=== PATIENT | male | born 1965 | race Caucasian/White ===

== ENCOUNTER 2017-12-24 08:49 | Emergency (ER) | payer OTHER ==
[~2017-12-24] VITALS: Ht 180.3 cm; Wt 88.0 kg
[2017-12-24 09:01] VITALS: BP 170/116
[2017-12-24] MEDS ORDERED: SODIUM CHLORIDE FLUSH 10ML SYR IVF ONE (09:30)
[2017-12-24 10:04] LABS: ALANINE AMINOTRANSFERASE 68 U/L (12-78); ALBUMIN 3.4 g/dL (3.4-5.0); ANION GAP 14 mmol/L (5-15); CALCIUM 8.4 mg/dL (8.5-10.1); CHLORIDE 104 mmol/L (98-107); CREATININE 0.73 mg/dL (0.7-1.3)
[2017-12-24 10:08] LABS: ALKALINE PHOSPHATASE 43 U/L (45-117); BILIRUBIN,TOTAL 0.8 mg/dL (0.2-1.0); TOTAL PROTEIN 7.6 g/dL (6.4-8.2); TROPONIN I < 0.015 ng/mL (0.000-0.045)
[2017-12-24 10:10] LABS: SALICYLATE LEVEL < 1.7 mg/dL (2.8-20.0)
[2017-12-24 10:37] LABS: BASOPHILS # (AUTO) 0.02 x10^3/uL (0-0.1); BASOPHILS % (AUTO) 0 % (0-1); EOSINOPHILS # (AUTO) 0.08 x10^3/uL (0-0.4); EOSINOPHILS % (AUTO) 2 % (1-7); LYMPHOCYTES # (AUTO) 0.97 x10^3/uL (1-3.4); LYMPHOCYTES % (AUTO) 20 % (22-44); MD SCAN; MEAN CORPUSCULAR HEMOGLOBIN 33.8 pg (27.5-34.5); MEAN CORPUSCULAR HGB CONC 34.9 g/dL (33.2-36.2); MEAN CORPUSCULAR VOLUME 96.9 fL (81-97); MEAN PLATELET VOLUME 7.9 fL (7.4-10.4); MONOCYTES # (AUTO) 0.49 x10^3/uL (0.2-0.8); MONOCYTES % (AUTO) 10 % (2-9); NEUTROPHILS # (AUTO) 3.39 x10^3/uL (1.8-6.8); NEUTROPHILS % (AUTO) 69 % (42-75); PLATELET COUNT 55 x10^3/uL (130-400); RED BLOOD COUNT 4.76 x10^6/uL (4.38-5.82)
== END 2017-12-24 12:05 | disposition home or self-care (01) ==
LOC: ED 11:45
DX: R11.10 Vomiting, unspecified (principal); R20.2 Paresthesia of skin; I10 Essential (primary) hypertension
CPT/HCPCS: 36415; 70450; 71045; 80053; 80329; 84484; 85025; 93005; 99285; G0480

== ENCOUNTER 2019-08-19 09:41 | Emergency (ER) | payer MEDICAID ==
[~2019-08-19] VITALS: Ht 180.3 cm; Wt 87.0 kg
--- NOTE | 2019-08-19 09:50 | NUR ---
pt ambulated to the room with a steady gait. Changed into hospital gown and connected to monitors.
--- NOTE | 2019-08-19 09:53 | NUR ---
Provider at bedside. pt in with C/O of shortness of breath for "months". pt also states that he had a CXR and blood work completed yesterday was advised to go to the ED today
--- NOTE | 2019-08-19 10:01 | NUR ---
pt states that he take lisinopril, alburterol, hydrocholorzide and 2 other medications that he can not remember that names of. pt does not now the dosages of his medications.
--- NOTE | 2019-08-19 10:05 | NUR ---
CXR at bedside
[2019-08-19 10:35] LABS: BASOPHILS # (AUTO) 0.03 x10^3/uL (0-0.1); BASOPHILS % (AUTO) 1 % (0-1); EOSINOPHILS # (AUTO) 0.16 x10^3/uL (0-0.4); EOSINOPHILS % (AUTO) 4 % (1-7); LYMPHOCYTES # (AUTO) 1.22 x10^3/uL (1-3.4); LYMPHOCYTES % (AUTO) 28 % (22-44); MD NO; MEAN CORPUSCULAR HEMOGLOBIN 33.8 pg (27.5-34.5); MEAN CORPUSCULAR VOLUME 99.5 fL (81-97); MEAN PLATELET VOLUME 8.7 fL (7.4-10.4); MONOCYTES # (AUTO) 0.72 x10^3/uL (0.2-0.8); MONOCYTES % (AUTO) 16 % (2-9); NEUTROPHILS # (AUTO) 2.28 x10^3/uL (1.8-6.8); NEUTROPHILS % (AUTO) 52 % (42-75); PLATELET COUNT 125 x10^3/uL (130-400); RED BLOOD COUNT 4.49 x10^6/uL (4.38-5.82); RED CELL DISTRIBUTION WIDTH 16.6 % (9.4-14.8)
[2019-08-19 10:44] LABS: ALANINE AMINOTRANSFERASE 128 U/L (12-78); ALBUMIN 3.4 g/dL (3.4-5.0); ANION GAP 10 mmol/L (5-15); CHLORIDE 99 mmol/L (98-107); CREATININE 0.84 mg/dL (0.7-1.3)
[2019-08-19 10:48] LABS: ALKALINE PHOSPHATASE 36 U/L (45-117); BILIRUBIN,TOTAL 0.5 mg/dL (0.2-1.0); TOTAL PROTEIN 7.4 g/dL (6.4-8.2); TROPONIN I < 0.015 ng/mL (0.000-0.045)
[2019-08-19] MEDS ORDERED: POTASSIUM CHLORIDE 20 MEQ TAB.ER.PRT PO ONE (11:00)
[2019-08-19] MEDS ORDERED: POTASSIUM CHLORIDE 20 MEQ TAB.ER.PRT ONE (11:09)
[2019-08-19 11:57] VITALS: BP 138/79
== END 2019-08-19 12:04 | disposition home or self-care (01) ==
LOC: ED 10:24
DX: K85.20 Alcohol induced acute pancreatitis without necrosis or infection (principal); E87.6 Hypokalemia; R94.5 Abnormal results of liver function studies; R06.00 Dyspnea, unspecified; R05 Cough; I21.9 Acute myocardial infarction, unspecified; I10 Essential (primary) hypertension; G89.29 Other chronic pain; Z87.891 Personal history of nicotine dependence
CPT/HCPCS: 36415; 71045; 76700; 80053; 83690; 83880; 84484; 85025; 93005; 99285

== ENCOUNTER 2020-07-22 06:24 | Emergency (ER) | payer MEDICAID ==
[~2020-07-22] VITALS: Ht 180.3 cm; Wt 84.3 kg
[2020-07-22 07:16] LABS: BASOPHILS % (AUTO) 2 % (0-1); EOSINOPHILS % (AUTO) 5 % (1-7); LYMPHOCYTES % (AUTO) 29 % (22-44); MEAN CORPUSCULAR HEMOGLOBIN 33.5 pg (27.5-34.5); MEAN CORPUSCULAR HGB CONC 34.5 g/dL (33.2-36.2); MEAN PLATELET VOLUME 8.5 fL (7.4-10.4); MONOCYTES % (AUTO) 8 % (2-9); NEUTROPHILS % (AUTO) 56 % (42-75); PLATELET COUNT 172 x10^3/uL (130-400)
--- NOTE | 2020-07-22 07:23 | NUR ---
PT STATES BILAT LE SWELLING AND PAIN WITH STANDING X1 WEEK. PT PLACED ON ALL MONITORS, VSS. AWAITING LAB RESULTS. TECH AT BEDSIDE FOR EKG PER ORDERS.
[2020-07-22 07:27] LABS: ALBUMIN 2.9 g/dL (3.4-5.0); ANION GAP 9 mmol/L (5-15); CALCIUM 8.1 mg/dL (8.5-10.1); CHLORIDE 110 mmol/L (98-107); CREATININE 0.79 mg/dL (0.7-1.3)
[2020-07-22] MEDS ORDERED: POTASSIUM CHLORIDE 20 MEQ PACKET PO STA (07:52)
--- NOTE | 2020-07-22 08:05 | NUR ---
PT RESTING IN BED, NO DISTRESS. AWAITING U/S RESULTS. PT REMAINS ON MONITOR. CONT TO MONITOR.
--- NOTE | 2020-07-22 08:40 | NUR ---
PT D/C'D PER ORDERS. PT HAS ALL OWN BELONGINGS UPON D/C. PT VERBALIZED UNDERSTANDING OR D/C INSTRUCTIONS.
[2020-07-22 08:41] VITALS: BP 137/94
[2020-10-25] MEDS ORDERED: TIOT18CA INH (13:29)
[2020-10-25] MEDS ORDERED: LISI2.5T12 PO (13:29)
[2020-10-25] MEDS ORDERED: ALBU18HF INH (13:29)
== END 2020-07-22 08:43 | disposition home or self-care (01) ==
LOC: ED 08:33
DX: M79.661 Pain in right lower leg (principal); M79.662 Pain in left lower leg; I10 Essential (primary) hypertension; J44.9 Chronic obstructive pulmonary disease, unspecified; I45.10 Unspecified right bundle-branch block; Z87.891 Personal history of nicotine dependence
CPT/HCPCS: 36415; 71045; 80048; 82040; 83735; 83880; 85025; 93005; 93970; 99285

== ENCOUNTER 2020-10-25 14:49 | Emergency (ER) | payer MEDICAID ==
[~2020-10-25] VITALS: Ht 180.3 cm; Wt 73.9 kg
[2020-10-25] MEDS ORDERED: NS + 40MEQ KCL 1,000 ML IV ONE ×2 (15:01→15:09)
[2020-10-25] MEDS ORDERED: POTASSIUM CHLORIDE 20 MEQ TAB.ER.PRT ONE (15:09)
[2020-10-25] MEDS ORDERED: POTASSIUM CHLORIDE 20 MEQ TAB.ER.PRT PO ONE (15:30)
--- NOTE | 2020-10-25 15:32 | NUR ---
PT AMBULATORY TO ROOM 31 W/ NO COMPLAINTS BUT IS SCHEDULED FOR PROCEDURE NET WEEK. PT WENT IN TO PRE-OP AND HAD LAB WORK DONE AND WAS TOLD K+ 2.4 AND TO COME TO ED. PT DENIES ANY SX. DENIES CP. PT RESTING ON GURNEY. NADN. MONITORS APPLIED. VSS. WARM BLANKET PROVIDED. CALL LIGHT IN REACH.
[2020-10-25 15:43] LABS: ANION GAP 6 mmol/L (5-15); CALCIUM 9.7 mg/dL (8.5-10.1); CHLORIDE 95 mmol/L (98-107); CREATININE 0.94 mg/dL (0.7-1.3)
--- NOTE | 2020-10-25 15:54 | NUR ---
PT CHART REVIEWED AND PLACED FOR RECHECK.
--- NOTE | 2020-10-25 16:22 | NUR ---
PT RESTING ON GURNEY. NADN. LUA.
--- NOTE | 2020-10-25 17:19 | NUR ---
PT RESTING ON GURNEY. NADN. LUA. PT PROVIDED W/ MEAL TRAY.
--- NOTE | 2020-10-25 18:09 | NUR ---
PT RESTING ON GURNEY. NADN. LUA.
--- NOTE | 2020-10-25 18:55 | NUR ---
PT HAS RECEIVED HALF OF 1L NS W/ 40 MEQ INFUSION. PER ERP DR. LURDES VEE TO DC PT NOW.
[2020-10-25 19:25] VITALS: BP 140/80
--- NOTE | 2020-10-25 19:25 | NUR ---
PT RESTING ON GURNEY. NADN. LUA.
== END 2020-10-25 19:27 | disposition home or self-care (01) ==
LOC: ED 16:00
DX: E87.6 Hypokalemia (principal); R00.0 Tachycardia, unspecified; I10 Essential (primary) hypertension; J44.9 Chronic obstructive pulmonary disease, unspecified; G89.29 Other chronic pain; Z87.891 Personal history of nicotine dependence
CPT/HCPCS: 36415; 80048; 82040; 93005; 96365; 96366; 99285; J3480

== ENCOUNTER → 2020-10-25 | Outpatient (CLI) | payer MEDICAID ==
[~2020-10-25] MED LIST: ALBU18HF INH; LISI2.5T PO; TIOT18CA INH
[2020-10-25 13:57] LABS: ALANINE AMINOTRANSFERASE 42 U/L (12-78); ALBUMIN 3.1 g/dL (3.4-5.0); CALCIUM 9.9 mg/dL (8.5-10.1); CREATININE 1.05 mg/dL (0.7-1.3)
[2020-10-25 13:59] LABS: ALKALINE PHOSPHATASE 63 U/L (45-117); BILIRUBIN,TOTAL 0.7 mg/dL (0.2-1.0); TOTAL PROTEIN 7.1 g/dL (6.4-8.2)
[2020-10-25 14:04] LABS: ANION GAP 7 mmol/L (5-15); CHLORIDE 96 mmol/L (98-107)
== END | disposition home or self-care (01) ==
LOC: STAR 12:34
PROVIDERS: ATTEND Internal Medicine Gastroenterology
DX: Z01.818 Encounter for other preprocedural examination (principal); K86.2 Cyst of pancreas; R93.5 Abnormal findings on diagnostic imaging of other abdominal regions, including retroperitoneum; I45.19 Other right bundle-branch block; R00.0 Tachycardia, unspecified; Z20.822 Contact with and (suspected) exposure to COVID-19
CPT/HCPCS: 36415; 80053; 93005; U0003; U0005

== ENCOUNTER 2020-11-18 12:08 | Emergency (ER) | payer MEDICAID ==
[~2020-11-18] VITALS: Ht 180.3 cm; Wt 80.0 kg
--- NOTE | 2020-11-18 12:52 | NUR ---
PT TO ROOM FROM TRIAGE, CHANGED INTO GOWN, MONITORS IN PLACE. PT C/O CONSTANT L SIDED CP AND L SCAPULA PAIN FOR ONE WEEK. PT ALSO C/O DIZZINESS, SOB. INTERMITTENT HICCUPS. ALSO FLU LIKE SX.
--- NOTE | 2020-11-18 12:55 | NUR ---
REPORT TO MORRO CASTILLO
--- NOTE | 2020-11-18 13:16 | NUR ---
REPORT FROM ARTUR HOOKER. PT AWAITING ERMD ASSESSMENT.
[2020-11-18] MEDS ORDERED: KETOROLAC 30 MG/1 ML ONE (13:42)
[2020-11-18 13:58] LABS: BASOPHILS % (AUTO) 0 % (0-1); EOSINOPHILS % (AUTO) 1 % (1-7); LYMPHOCYTES % (AUTO) 8 % (22-44); MEAN CORPUSCULAR HEMOGLOBIN 33.5 pg (27.5-34.5); MEAN CORPUSCULAR HGB CONC 34.2 g/dL (33.2-36.2); MEAN PLATELET VOLUME 8.5 fL (7.4-10.4); MONOCYTES % (AUTO) 14 % (2-9); NEUTROPHILS % (AUTO) 78 % (42-75); PLATELET COUNT 202 x10^3/uL (130-400); RED BLOOD COUNT 3.58 x10^6/uL (4.38-5.82); RED CELL DISTRIBUTION WIDTH 15.5 % (9.4-14.8)
[2020-11-18] MEDS ORDERED: KETOROLAC 30 MG/1 ML IM ONE (14:00)
[2020-11-18 14:10] LABS: ALBUMIN 1.9 g/dL (3.4-5.0); ANION GAP 9 mmol/L (5-15); CALCIUM 9.3 mg/dL (8.5-10.1); CHLORIDE 95 mmol/L (98-107)
[2020-11-18 14:11] LABS: CREATININE 1.29 mg/dL (0.7-1.3)
--- NOTE | 2020-11-18 14:29 | NUR ---
IV STARTED BY SHOPPER STUDENT. IV NS BOLUS INITIATED PER ORDERS. PT REMAINS ON MONITORS. CONT TO MONITOR.
[2020-11-18] MEDS ORDERED: SODIUM CHLORIDE 0.9% 1,000ML IVBOLUS ONE (14:30)
[2020-11-18] MEDS ORDERED: POTASSIUM CHLORIDE 20 MEQ PACKET PO ONE (15:00)
[2020-11-18] MEDS ORDERED: POTASSIUM CHLORIDE 20 MEQ PACKET ONE (15:16)
[2020-11-18 15:21] VITALS: BP 147/87
== END 2020-11-18 15:35 | disposition home or self-care (01) ==
LOC: ED 15:30
DX: R07.89 Other chest pain (principal); E87.6 Hypokalemia; R00.0 Tachycardia, unspecified; D72.829 Elevated white blood cell count, unspecified; I10 Essential (primary) hypertension; J44.9 Chronic obstructive pulmonary disease, unspecified
CPT/HCPCS: 36415; 71045; 80048; 82040; 85025; 93005; 96360; 96372; 99285; J1885; J7030

== ENCOUNTER 2020-12-27 12:19 | Day surgery (SDC) | payer MEDICAID ==
[~2020-12-27] VITALS: Ht 180.3 cm; Wt 75.0 kg
[~2020-12-27 12:19] MED LIST changes: -LISI2.5T PO; +LISI2.5T12 PO
[2020-12-27 12:45] VITALS: BP 154/95
[2020-12-27] MEDS ORDERED: CHLORHEXIDINE 15 ML UDC ONE (12:47)
[2020-12-27] MEDS ORDERED: CHLORHEXIDINE 15 ML UDC PO ONE (13:00)
[2020-12-27] MEDS ORDERED: LACTATED RINGERS 1,000 ML IV SCH (13:00)
[2020-12-27] MEDS ORDERED: MONT10TA17 PO (13:10)
[2020-12-27] MEDS ORDERED: PROPOFOL 50 ML ONE ×2 (13:59→14:23)
[2020-12-27] MEDS ORDERED: PROMETHAZINE 25 MG/ML, 1ML IVPush PRN (15:00)
[2020-12-27] MEDS ORDERED: HYDROmorphone 1 MG/ML, 1ML INJ IVPush PRN (15:00)
[2020-12-27] MEDS ORDERED: PROMETHAZINE 12.5 MG SUPP PR PRN (15:00)
[2020-12-27] MEDS ORDERED: LABETALOL 5MG/ML, 20ML IV PRN (15:00)
[2020-12-27] MEDS ORDERED: DIAZEPAM 5 MG/ML, 2ML IVPush PRN (15:00)
[2020-12-27] MEDS ORDERED: DIPHENHYDRAMINE 50 MG/ML, 1ML IVPush PRN ×2 (15:00)
[2020-12-27] MEDS ORDERED: ONDANSETRON 2MG/ML, 2ML IVPush PRN (15:00)
[2020-12-27] MEDS ORDERED: EPHEDRINE 50 MG/ML, 1ML IVPush PRN (15:00)
[2020-12-27] MEDS ORDERED: ALBUTEROL SULFATE 2.5 MG/3 ML NPPB PRN (15:00)
[2020-12-27] MEDS ORDERED: MEPERIDINE/PF 25MG/0.5ML IVPush PRN (15:00)
[2020-12-27] MEDS ORDERED: FENTANYL PF 100 MCG/2ML IV PRN (15:00)
[2020-12-27] MEDS ORDERED: MIDAZOLAM 1 MG/ML, 2ML IV PRN (15:00)
[2020-12-27] MEDS ORDERED: ACETAMINOPHEN 325 MG TABLET PO PRN (15:00)
[2020-12-27] MEDS ORDERED: OXYcodone 5 MG/5 ML ORAL.SOL UDC PO PRN (15:00)
[2020-12-27] MEDS ORDERED: hydrALAzine 20 MG/ML, 1ML IV PRN (15:00)
== END 2020-12-27 15:50 | disposition home or self-care (01) ==
LOC: OUT 12:19
PROVIDERS: ATTEND Internal Medicine Gastroenterology
DX: K86.2 Cyst of pancreas (principal); K85.90 Acute pancreatitis without necrosis or infection, unspecified; K22.10 Ulcer of esophagus without bleeding; K44.9 Diaphragmatic hernia without obstruction or gangrene; K76.89 Other specified diseases of liver; K21.9 Gastro-esophageal reflux disease without esophagitis; J44.9 Chronic obstructive pulmonary disease, unspecified; I10 Essential (primary) hypertension; G47.30 Sleep apnea, unspecified; Z20.822 Contact with and (suspected) exposure to COVID-19; Z79.899 Other long term (current) drug therapy; Z87.891 Personal history of nicotine dependence
CPT/HCPCS: 43239; 43242; 87070; 87077; 87205; 87635; 88112; 88172; 88173; 88305; 88307; J2704; J7120